=== PATIENT | male | born 2005 | race Two or more races ===

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

== ENCOUNTER 2025-06-04 23:44 | Emergency (ER) | payer SELFPAY ==
[~2025-06-04] VITALS: Ht 177.8 cm; Wt 109.9 kg
[~2025-06-04 23:44] MED LIST changes: +IBUP-1456 PO
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
[2025-06-05] MEDS: fentaNYL CITRATE 100 MCG/2 ML VL IV ONE (00:15)
[2025-06-05 00:31] LABS: Hematocrit 47.8 % (41.0-53.0); Hemoglobin 16.4 g/dL (13.5-17.5); Mean Corpuscular Hemoglobin 30.6 pg (28.0-32.0); Mean Corpuscular Volume 88.8 fL (80.0-100.0); Nucleated Red Blood Cells % 0.1 %
[2025-06-05 00:44] LABS: Chloride 107 mmol/L (98-107); Sodium 143 mmol/L (136-145)
[2025-06-05 00:45] LABS: Anion Gap 14 (5-15); Calcium 9.7 mg/dL (8.7-10.4); Carbon Dioxide 22 mmol/L (20-31)
[2025-06-05 00:50] LABS: BUN/Creatinine Ratio 8.2 (10.0-20.0); Blood Urea Nitrogen 9 mg/dL (9-23); Glucose 97 mg/dL (74-106)
[2025-06-05 00:51] LABS: Potassium 3.5 mmol/L (3.5-5.1)
--- NOTE | 2025-06-05 01:15 | DVH ---
EXAM: CT CERVICAL WITHOUT CONTRAST HISTORY: facial head injury, pain COMPARISON: None CTDIvol 27.32 mGy, DLP 663.19 mGy*cm. TECHNIQUE: Multiple axial CT images of the spine were obtained using bone algorithm. Axial and coronal reformatting was done. Bone and soft tissue windows were reviewed. FINDINGS: No evidence of definite acute fracture, spinal dislocation, or significant appearing acute subluxation is seen. IMPRESSION: No acute fracture.
--- NOTE | 2025-06-05 01:18 | DVH ---
EXAM: CT HEAD WITHOUT CONTRAST INDICATION: facial head injury, pain TECHNIQUE: CT of the head without intravenous contrast. Radiation Dose Information: CT Dose: CTDI volume is 62.06 mGy. Dose-length product is 1222.84 mGy*cm The dose indicators for CT are the volume Computed Tomography (CT) Dose Index (CTDIvol) and the Dose Length Product (DLP), and are measured in units of mGy and mGy-cm, respectively. These indicators are not patient dose, but values generated from the CT scanner acquisition factors. The report includes radiation exposure data for exposures received during this examination. COMPARISON: None FINDINGS: There is no evidence of acute intracranial hemorrhage, extra-axial collection, mass effect, midline shift, herniation or hydrocephalus. The ventricles, sulci and cisterns are age appropriate. The garcia-white differentiation is intact. The visualized paranasal sinuses and mastoid air cells are clear. Facial bones reported separately. IMPRESSION: No acute intracranial abnormality.
--- NOTE | 2025-06-05 01:21 | DVH ---
HISTORY: facial injury head injury, pain TECHNIQUE: Nonenhanced axial images through the facial bones with coronal and sagittal MPR. Radiation Dose Information: CT Dose: CTDI volume is 66.97 mGy. Dose-length product is 1346.89 mGy*cm COMPARISON: CT HEAD WITHOUT CONTRAST on DOS: 06/05/25 FINDINGS: Mandible: Comminuted mildly displaced fracture at the left mandibular body anteriorly extending towards the midline. Additional nondisplaced mildly comminuted fracture of the right mandibular ramus extending towards the angle. Maxilla: Unremarkable Zygomatic arches: Unremarkable Nasal bone: Unremarkable Orbits: Unremarkable Sinuses: Clear Facial swelling: Soft tissue swelling anterior to the mandible. IMPRESSION: Comminuted fracture involving the right and left alvaro mandible. Radiation optimization: All CT scans at this facility use at least one of these dose optimization techniques: automated exposure control mA and/or kV adjustment per patient size (includes targeted exams where dose is matched to clinical indication) or iterative reconstruction.
[2025-06-05 03:30] VITALS: PULSE 87; RESP 16; O2SAT 99
[2025-06-05] MEDS ORDERED: MORPHINE SULFATE INJ 2 MG/ml SYRG IV ONE (03:45)
[2025-06-05] MEDS: ceFAZolin 2 GM/D5W50ml 50 ML IV ONE (03:51)
[2025-06-05] MEDS: ONDANSETRON HCL 4 MG/2 ML VIAL IV ONE (04:01)
[2025-06-05] MEDS: TETANUS-DIPTH-ACEL PERTUSSIS 0.5ML SYR Tdap IM ONE (04:06)
[2025-06-05] MEDS: MORPHINE SULFATE 4 MG/ML SYR/VIAL IV ONE (04:07)
[2025-06-05 04:21] VITALS: TEMP 98; O2SAT 97
[2025-06-05 04:22] VITALS: BP 130/82; PULSE 92; RESP 17
== END 2025-06-05 04:34 | disposition short-term general hospital (02) ==
LOC: ER 23:44
DX: S02.642A Fracture of ramus of left mandible, initial encounter for closed fracture (principal); S02.641A Fracture of ramus of right mandible, initial encounter for closed fracture; Z79.899 Other long term (current) drug therapy; Z88.0 Allergy status to penicillin; Y04.0XXA Assault by unarmed brawl or fight, initial encounter; Y93.89 Activity, other specified; Y92.89 Other specified places as the place of occurrence of the external cause; Y99.8 Other external cause status
CPT/HCPCS: 36415; 70450; 70486; 72125; 80048; 85025; 86850; 86900; 86901; 90471; 90715; 96361; 96365; 96375; 99285; J0690; J2270; J2405; J3010; 96374